=== PATIENT | male | born 1995 | race Two or more races ===

== ENCOUNTER 2024-05-25 11:58 | Emergency (ER) | payer OTHER ==
[~2024-05-25] VITALS: Ht 167.6 cm; Wt 75.0 kg
[2024-05-25 12:07] VITALS: TEMP 97.6
[2024-05-25] MEDS ORDERED: IBUP-1492 PO (14:07)
[2024-05-25 14:17] VITALS: BP 141/75; PULSE 97; RESP 18; O2SAT 99
== END 2024-05-25 14:24 | disposition home or self-care (01) ==
LOC: EMS 11:58
DX: S93.402A Sprain of unspecified ligament of left ankle, initial encounter (principal); Z98.890 Other specified postprocedural states; X50.1XXA Overexertion from prolonged static or awkward postures, initial encounter; Y93.89 Activity, other specified; Y92.89 Other specified places as the place of occurrence of the external cause; Y99.8 Other external cause status
CPT/HCPCS: 99283